=== PATIENT | female | born 1980 | race African-American/Black ===

== ENCOUNTER 2016-09-29 00:50 | Inpatient (IN) ==
[2016-09-29] MEDS ORDERED: HYDROmorphone 2 MG/1 ML VIAL IV STA (01:26)
[2016-09-29] MEDS ORDERED: SODIUM CHLORIDE 0.9% 1,000 ML IV STA (01:26)
[2016-09-29] MEDS ORDERED: ONDANSETRON 4 MG/2 ML VIAL IV STA (01:26)
--- NOTE | 2016-09-29 01:30 | Emergency Department Note ---
Arrival - Arrival ED Nursing Triage Note: Patient states that she thinks that she is having a sickle cell crisis. Reports thtat the back of her head is very painful to the touch and feels numb. Also complains of generalized pain. No other medical history. Mode of Arrival: Ambulatory Limitations: No Limitations Source: Patient - History of Present Illness Onset (ago): hour(s) (Patient presents 4-5 hours post onset of symptoms) Date of Last Menstrual Period: 09/29/2016 <Pavel Rubio - Last Filed: 09/29/16 01:28> <Fernando Dorsey - Last Filed: 09/29/16 05:02> - Arrival Chief Complaint: Sickle Cell Time Seen by Provider: 09/29/16 01:26 - History of Present Illness HPI Narrative: This 36-year-old black female with sickle cell disease followed in the [place] [facility] presents with complaints of onset of pain in typical distribution approximately 4-5 hours ago. The patient has tried to control the discomfort but has not been able do so and now presents for further evaluation and treatment. She denies chills, fever, cough, shortness of breath, dysuria, urgency, nausea, or vomiting. Other than the pain, currently she is medically stable. (Pavel uRbio) Allergies/Adverse Reactions: Allergies Allergy/AdvReac Type Severity Reaction Status Date / Time No Known Allergies Allergy Verified 01/23/15 18:20 Home Medications: Home Medications Medication Instructions Recorded Confirmed Type Ferrous Sulfate [Iron] 325 mg PO DAILY 09/29/16 09/29/16 History Review of System - Review of System 12 point system: reviewed and no additional remarkable complaints except as stated - Review of System Constitutional: Present: as per HPI Musculoskeletal: Present: as per HPI Hematological/Lymphatic: Present: as per HPI <Pavel Rubio - Last Filed: 09/29/16 01:28> Medical,Surgical,& Family Hx - Medical History Cardio: History of: Cardiovascular Problems Hematology: History of: Anemia, Sickle Cell Disease - Social History Smoking Status: Never smoker Frequency of Alcohol Use: None Type of Drug Use: None <Pavel Rubio - Last Filed: 09/29/16 01:28> Exam <Pavel Rubio - Last Filed: 09/29/16 01:28> <Fernando Dorsey - Last Filed: 09/29/16 05:02> Physical Examination: GENERAL: Well developed, well nourished black in no acute distress. HEENT: Normocephalic. No trauma. Moist mucous membranes. EOMI. PERRLA. ENT NML NECK: Supple. No adenopathy. CARDIAC: Regular. No murmurs. Heart rate 73 CHEST: Clear to auscultation. No respiratory distress. O2 sat 100 ABDOMEN: Soft. Nontender. Active bowel sounds. EXTREMITIES: No trauma. Pain on range of motion all large joints. No pedal edema. SKIN: No diaphoresis. No rash. NEURO: Alert. Neuro intact no focal deficits. (Pavel Rubio) Vital Signs: Vital Signs Temperature 98.2 F 09/29/16 00:50 Pulse Rate 77 09/29/16 00:50 Respiratory Rate 20 09/29/16 00:50 Blood Pressure 126/63 09/29/16 00:50 O2 Sat by Pulse Oximetry 100 09/29/16 00:50 Course <Pavel Rubio - Last Filed: 09/29/16 01:28> - Consultations Time: 05:02 <Fernanod Dorsey - Last Filed: 09/29/16 05:02> - Consultations Consultation #1: Hospitalist will admit patient (Fernando Dorsey) Results - Labs CBC & BMP: 09/29/16 02:01 09/29/16 02:01 Lab Results: I have reviewed the patients labs <Fernando Dorsey - Last Filed: 09/29/16 05:02> Disposition <Pavel Rubio - Last Filed: 09/29/16 01:28> Case discussed with: patient Time of Disposition: 05:02 <Fernando Dorsey - Last Filed: 09/29/16 05:02> Clinical Impression: Sickle cell crisis, Anemia of chronic disease Disposition: Still a Patient Condition: Stable
[2016-09-29] MEDS ORDERED: ONDANSETRON 4 MG/2 ML VIAL ONE (01:46)
[2016-09-29] MEDS ORDERED: HYDROmorphone 2 MG/1 ML VIAL ONE (01:47)
[2016-09-29 02:51] LABS: Basophils % 0.2 % (0.0-0.8); Eosinophils # 0.2 10*3/uL (0.0-0.87); Eosinophils % 2.9 % (0.00-10.9); Hematocrit 23.4 VOL% (35.7-47.0); Hemoglobin 7.1 GM/DL (12.0-16.0); Immature Granulocytes % 0.2 %; Immature Granulocytes Absolute 0.01 #; Lymphocytes # 2.1 10*3/uL (1.4-4.0); Lymphocytes % 33.8 % (21.3-54.2); Mean Corpuscular HGB Conc 30.3 GM/DL (32-36); Mean Corpuscular Hemoglobin 21 PG (27-34); Mean Corpuscular Volume 68.2 FL (87-102); Mean Platelet Volume 12.7 FL (9.6-12.0); Monocytes # 0.6 10*3/uL (0.11-0.8); Monocytes % 10.2 % (1.7-12.7); Neutrophils # 3.3 10*3/uL (1.4-7.4); Neutrophils % 52.7 % (38.7-73.9); Platelet Count 278 T/CUMM (130-400); Red Blood Count 3.43 MC/CUMM (3.8-5.5); Red Cell Distribution Width 17.8 % (9.3-17.3); White Blood Count 6.3 T/CUMM (4-12)
[2016-09-29 03:04] LABS: Alanine Aminotransferase 12 U/L (13-56); Albumin 3.6 G/DL (3.4-5.0); Alkaline Phosphatase 45 U/L (45-117); Aspartate Amino Transferase 11 U/L (0-37); Bilirubin,Total < 0.39 MG/DL (0.2-1.0); Blood Urea Nitrogen 4 MG/DL (7-18); Calcium 8.4 MG/DL (8.5-10.1); Glucose 101 MG/DL (74-106); Osmolality,Calculated 277.3 MOS/KG (273-304); Potassium 3.2 MMOL/L (3.5-5.1); Sodium 141 MMOL/L (136-145); Total Protein 7.9 G/DL (6.4-8.3)
[2016-09-29] MEDS ORDERED: PROMETHAZINE 25 MG/1 ML VIAL IM STA (03:10)
[2016-09-29] MEDS ORDERED: PROMETHAZINE 25 MG/1 ML VIAL ONE (03:11)
[2016-09-29 03:17] LABS: PT Patient Result 10.9 SECS
[2016-09-29 04:51] LABS: Anisocytosis 1+; Hypochromasia 1+; Platelet Estimate Normal; Polychromasia Slight
[2016-09-29] MEDS ORDERED: ONDANSETRON 4 MG/2 ML VIAL IV PRN (06:15)
[2016-09-29] MEDS ORDERED: ZALEPLON 5 MG CAPSULE PO PRN (06:15)
[2016-09-29] MEDS ORDERED: ACETAMINOPHEN 325 MG TABLET PO PRN (06:15)
[2016-09-29] MEDS ORDERED: POTASSIUM CHLORIDE 20 MEQ TABLET PO ONE ×2 (06:18→07:03)
--- NOTE | 2016-09-29 06:21 | Hospitalist History & Physical ---
Assessment and Plan (1) Sickle cell crisis Status: Acute Assessment and plan: Admit to medical surgical floor. Hydrate with lactated Ringer's Morphine for pain Repeat LDH and reticulocyte count tomorrow Transfuse as needed Current Visit: Yes (2) Anemia of chronic disease Status: Chronic Current Visit: Yes History of Present Illness History of present illness: Ms. Rees is a 36 year old female with sickle cell disease followed in the [place] [facility] presents with complaints of onset of pain in typical distribution approximately 4-5 hours ago. The patient has tried to control the discomfort but has not been able do so and now presents for further evaluation and treatment. She denies chills, fever, cough, shortness of breath, dysuria, urgency, nausea, or vomiting. Other than the pain, currently she is medically stable. She reports only taking ferrous sulfate daily. She has not been on hydroxyurea in the past. She does not take folic acid. She reports the pain began in her ankles and has worked its way up her legs. It is now generalized in all extremities. She reports the pain is severe and rates it at an 8 out of 10. It is worsened with touch. Home Medications Medication Instructions Recorded Confirmed Type Ferrous Sulfate [Iron] 325 mg PO DAILY 09/29/16 09/29/16 History Allergies Allergy/AdvReac Type Severity Reaction Status Date / Time No Known Allergies Allergy Verified 01/23/15 18:20 Medical,Surgical,& Family Hx - Medical History Cardio: History of: Cardiovascular Problems Hematology: History of: Anemia, Sickle Cell Disease - Family History Family History: Reports;: Family Hematology, Family Hypertension - Social History Smoking Status: Never smoker Frequency of Alcohol Use: None Type of Drug Use: None Marital Status: Single Lives With:: Alone Functional capacity: independent ambulation 12 point system: reviewed and no additional remarkable complaints except as stated Exam - Constitutional Vitals: Period Temp Pulse Resp BP Sys/Hubbard Pulse Ox Last 24 Hr 98.2 F-98.2 F 73-77 20-23 126-126/63-63 100-100 Exam: Constitutional System: No distress. No tremulousness. Head: Normocephalic, atraumatic. Ears, Nose and Throat System: No pain or tenderness. No epistaxis or discharge Eyes System: Pupils equal, round, and reactive. Extraocular muscles intact. Neck: Supple, without adenopathy, No jugular venous distention. No thyromegaly, neck mass, or prior surgery apparent. Respiratory System: Chest clear to auscultation. Cardiovascular System: Heart with regular rate and rhythm. No murmur. GI System: Abdomen soft, nontender. Normo active bowel sounds present. Musculoskeletal System: limbs with no pedal edema. Full distal pulses. Neurological System: No discernable sensory deficit. No aphasia Psychiatric System: Conversation is rational Results - Labs CBC & BMP: 09/29/16 02:01 09/29/16 02:01 Lab Results: I have reviewed the past 24 hour labs - Diagnostic Findings Procedure: Chest x-ray: image reviewed by me
[2016-09-29] MEDS ORDERED: ENOXAPARIN 40 MG/0.4 ML SYRINGE ONE (07:04)
[2016-09-29] MEDS: ENOXAPARIN 40 MG/0.4 ML SYRINGE SUBCUT SCH (07:11)
--- NOTE | 2016-09-29 07:42 | XRay Report ---
XR chest 2V Indication: Shortness of breath Comparison: 23 January 2015 Findings: The heart and mediastinum are normal in size and configuration. The pulmonary vascularity is normal in caliber. No lung infiltrates, effusions, pneumothorax or other abnormality is demonstrated. Impression: Normal chest x-ray PROCEDURE INTERPRETED AT [facility] DEPARTMENT OF RADIOLOGY Final Report Signed by: Dr. Ken Koch
[2016-09-29] MEDS: LACTATED RINGERS 1,000 ML IV SCH ×2 (08:11→16:52)
[2016-09-29] MEDS: PANTOPRAZOLE 40 MG TABLET PO SCH (08:56)
[2016-09-29] MEDS: FERROUS SULFATE 325 MG TABLET PO SCH (08:56)
[2016-09-29] MEDS: MORPHINE 2 MG/1 ML SYRINGE IV PRN ×3 (11:03→22:28)
[2016-09-30] MEDS: LACTATED RINGERS 1,000 ML IV SCH ×3 (00:43→19:55)
[2016-09-30] MEDS: MORPHINE 2 MG/1 ML SYRINGE IV PRN ×3 (04:28→20:37)
[2016-09-30 05:25] LABS: Eosinophils # 0.2 10*3/uL (0.0-0.87); Eosinophils % 3.6 % (0.00-10.9); Hematocrit 21.4 VOL% (35.7-47.0); Immature Granulocytes % 0.2 %; Immature Granulocytes Absolute 0.01 #; Lymphocytes % 43.2 % (21.3-54.2); Mean Corpuscular HGB Conc 29.4 GM/DL (32-36); Mean Corpuscular Hemoglobin 21 PG (27-34); Mean Corpuscular Volume 70.2 FL (87-102); Mean Platelet Volume 12.9 FL (9.6-12.0); Monocytes # 0.5 10*3/uL (0.11-0.8); Monocytes % 10.2 % (1.7-12.7); Neutrophils % 42.8 % (38.7-73.9); Platelet Count 257 T/CUMM (130-400); Red Blood Count 3.05 MC/CUMM (3.8-5.5); Red Cell Distribution Width 17.8 % (9.3-17.3); White Blood Count 4.7 T/CUMM (4-12)
[2016-09-30 05:47] LABS: Hemoglobin 6.3 GM/DL (12.0-16.0)
[2016-09-30 05:53] LABS: Calcium 8.6 MG/DL (8.5-10.1)
[2016-09-30 05:54] LABS: Magnesium 2.2 MG/DL (1.8-2.4); Osmolality,Calculated 278.3 MOS/KG (273-304)
[2016-09-30 06:26] LABS: Eosinophils 2 % (0-10); Lymphocytes 37 % (20-55); Metamyelocytes 3 %; Segmented Neutrophils 54 % (50-85)
[2016-09-30 06:30] LABS: Anisocytosis 2+; Hypochromasia 2+; Microcytosis 2+; Platelet Estimate Normal
[2016-09-30 06:32] LABS: Total Cells Counted 100
[2016-09-30] MEDS: FERROUS SULFATE 325 MG TABLET PO SCH (08:47)
[2016-09-30] MEDS: ENOXAPARIN 40 MG/0.4 ML SYRINGE SUBCUT SCH (08:47)
[2016-09-30] MEDS: PANTOPRAZOLE 40 MG TABLET PO SCH (08:47)
[2016-09-30] MEDS ORDERED: SODIUM CHLORIDE 0.9% 250 ML IV PRN (09:46)
--- NOTE | 2016-09-30 10:27 | Hospitalist Progress Note ---
Assessment and Plan - Time spent with patient Time spent with patient: Greater than 30 minutes (pt is new to me. Chart reviewed by me today.) (1) Sickle cell crisis Status: Acute Assessment and plan: Pain management. Continue IVF. Current Visit: Yes (2) Anemia of chronic disease Status: Chronic Assessment and plan: Transfuse 2u PRBC today. CBC in am. Current Visit: Yes Hospitalist: Subjective Interval history: Pain better. Hb 6.3 this am. Can eat. Deny fever, SOB, chest pain, cough, or wheezing. Deny nausea, vomiting or diarrhea. in the room. Exam - Constitutional Vitals: Period Temp Pulse Resp BP Sys/Hubbard Pulse Ox Last 24 Hr 96.9 F-97.8 F 69-81 18-20 101-112/54-78 97-100 Exam: General: Lying in bed supine. AAOx3 HEENT: NC AT EOMI PERRLA Normal lips and gum Lungs: B/L CTA Heart: RRR, no murmur Abd: +BS ND. Neuro: AAOx3 Results - Labs CBC & BMP: 09/30/16 04:45 09/30/16 04:45
[2016-09-30] MEDS ORDERED: diphenhydrAMINE 50 MG/1 ML VIAL IV ONE (16:43)
[2016-09-30] MEDS ORDERED: KETOROLAC 15 MG/1 ML VIAL IV ONE (16:43)
[2016-10-01] MEDS: LACTATED RINGERS 1,000 ML IV SCH ×3 (03:30→17:28)
[2016-10-01 03:31] LABS: Basophils % 0.1 % (0.0-0.8); Eosinophils # 0.3 10*3/uL (0.0-0.87); Eosinophils % 3.7 % (0.00-10.9); Hematocrit 24.6 VOL% (35.7-47.0); Immature Granulocytes % 0.3 %; Immature Granulocytes Absolute 0.02 #; Lymphocytes # 2.1 10*3/uL (1.4-4.0); Lymphocytes % 27.6 % (21.3-54.2); Mean Corpuscular HGB Conc 31.3 GM/DL (32-36); Mean Corpuscular Hemoglobin 23 PG (27-34); Mean Corpuscular Volume 73.4 FL (87-102); Mean Platelet Volume 12.1 FL (9.6-12.0); Monocytes # 0.7 10*3/uL (0.11-0.8); NRBC # 0.02 10*3/uL; Neutrophils # 4.6 10*3/uL (1.4-7.4); Neutrophils % 59.3 % (38.7-73.9); Platelet Count 242 T/CUMM (130-400); Red Blood Count 3.35 MC/CUMM (3.8-5.5); Red Cell Distribution Width 19.4 % (9.3-17.3); White Blood Count 7.8 T/CUMM (4-12)
[2016-10-01 03:35] LABS: Hemoglobin 7.7 GM/DL (12.0-16.0)
[2016-10-01] MEDS: MORPHINE 2 MG/1 ML SYRINGE IV PRN ×3 (03:37→17:15)
[2016-10-01] MEDS: ENOXAPARIN 40 MG/0.4 ML SYRINGE SUBCUT SCH (09:18)
[2016-10-01] MEDS: FERROUS SULFATE 325 MG TABLET PO SCH (09:18)
[2016-10-01] MEDS: PANTOPRAZOLE 40 MG TABLET PO SCH (09:18)
--- NOTE | 2016-10-01 12:17 | Discharge Summary ---
<Nuria Pappasda - Last Filed: 10/01/16 12:13> Hospital Course - Hospital Course Hospital Course: This is a chronically ill 36-year-old female that presented to the ED on the morning of September 29, 2016 at [facility] for the evaluation of sickle cell pain crisis. The patient has a medical history significant for sickle cell anemia and chronic anemia. The patient reported the onset of symptoms 4-5 hours prior to presentation. She attempted to control her pain with her usual pain regimen however she has been unable to contain it. She reports that she is normally followed in the outpatient setting at the sickle cell clinic in [facility]. She reports that the pain initially started in her lower extremities gradually extending upward ultimately affecting her bilateral lower extremities. After the pain became unbearable, the patient decided to present to the ED for further evaluation.The patient was seen and assessed at the time of ED presentation. Labs were obtained which were significant for hemoglobin of 7.1, hematocrit 23.4, potassium 3.2, and BUN at 4. Chest x-ray was essentially unremarkable. The patient was subsequently admitted to the hospitalist service for continuation of care. Aggressive rehydration, oxygen supplementation, and pain management was initiated. The patient was transfused 2 units of packed red blood cells in response to the anemia noted at the time of admission. The patient's condition gradually improved. The patient's condition is stable. She has not experienced any significant overnight events. Today, we feel that she is indeed appropriate for discharge to follow-up with her primary care physician as indicated. Discharge Plan - Discharge Data Disposition: Disch To Home/Self Care - Discharge Medications Continue Ferrous Sulfate [Iron] 325 mg PO DAILY - Follow Up or Referral - Forms/Instructions Exam - Constitutional Vitals: Period Temp Pulse Resp BP Sys/Hubbard Pulse Ox Last 24 Hr 97.2 F-100.6 F 73-99 16-22 99-136/49-82 93-100 Discharge Results Procedures and tests throughout hospitalization: Pending Orders 09/29/16 02:01 Blood Culture Stat Labs on day of discharge: Labs from last 24 hours 10/01/16 09/30/16 02:15 04:45 WBC 7.8 D RBC 3.35 L Hgb 7.7 L D Hct 24.6 L MCV 73.4 L MCH 23 L MCHC 31.3 L RDW 19.4 H Plt Count 242 MPV 12.1 H Neut % (Auto) 59.3 Lymph % (Auto) 27.6 [place] % (Auto) 9.0 Eos % (Auto) 3.7 Baso % (Auto) 0.1 Neut # (Auto) 4.6 Lymph # (Auto) 2.1 [place] # (Auto) 0.7 Eos # (Auto) 0.3 Baso # (Auto) 0.0 Immature Gran % 0.3 Nucleated RBC % 0.3 Immature Gran # 0.02 Nucleated RBCs # 0.02 Immature Plt Fraction 0.0 Blood Type O POSITIVE Antibody Screen Negative Crossmatch See Detail Preliminary micro results at discharge 09/29/16 02:01 Blood Culture - Preliminary Blood No growth at 1 day 09/29/16 02:01 Blood Culture - Preliminary Blood No growth at 1 day DS: Provider Date of admission: 09/29/16 06:16 Primary care physician: . No PCP Attending physician on admission: Hiwot Zimmerman MD Discharging clinician: Rama Pappas CNP <Florin Jones - Last Filed: 10/01/16 13:25> Discharge Plan - Discharge Data Condition at Discharge: Stable Discharge Diet: advance to your usual diet Activity: resume usual activities as tolerated Hygiene: no restrictions Weight Bearing at Discharge: full weight bearing Contact your physician if you experience:: fever over 101, Nausea/Vomiting, Shortness of breath, pain uncontrolled by pain medications Exam - Constitutional General appearance: over weight - Head Head exam: Present: normocephalic, atraumatic - Eye Eye exam: Present: EOMI, other (Anicteric sclera) Pupils: Present: JERRY - ENT ENT exam: Present: normal exam - Neck Neck exam: Present: normal inspection - Respiratory Respiratory exam: Present: clear to auscultation bilaterally - Cardiovascular Cardiovascular exam: Present: regular rate and rhythm - GI/Abdominal GI/Abdominal exam: Present: normal bowel sounds, soft - Extremities Exam Extremities exam: Present: full ROM - Neurological Exam Neurological exam: Present: alert, oriented X3, CN II-XII intact - Psychiatric Psychiatric exam: Present: normal affect, normal mood, depressed - Skin Skin exam: Present: normal color, warm, dry
[2016-10-01 16:47] VITALS: BP 112/56
== END 2016-10-01 17:50 | disposition home or self-care (01) | DRG 812 ==
LOC: N.ED 00:50 → N.EDINP 06:15 → SUATTDRO 06:15 → N.2E 07:45
PROVIDERS: ADMIT Family Medicine; ATTEND Internal Medicine Infectious Disease

== ENCOUNTER 2016-12-01 00:20 | Inpatient (IN) ==
[2016-12-01] MEDS ORDERED: SODIUM CHLORIDE 0.9% 1,000 ML IV STA (00:33)
[2016-12-01] MEDS ORDERED: ONDANSETRON 4 MG/2 ML VIAL IV STA (00:33)
[2016-12-01] MEDS ORDERED: HYDROmorphone 2 MG/1 ML VIAL IV STA ×3 (00:33→05:46)
[2016-12-01] MEDS ORDERED: HYDROmorphone 2 MG/1 ML VIAL ONE ×3 (00:54→06:35)
[2016-12-01] MEDS ORDERED: ONDANSETRON 4 MG/2 ML VIAL ONE (00:54)
[2016-12-01 01:03] LABS: Basophils % 0.1 % (0.0-0.8); Eosinophils # 0.1 10*3/uL (0.0-0.87); Eosinophils % 1.8 % (0.00-10.9); Hematocrit 22.4 VOL% (35.7-47.0); Immature Granulocytes % 0.4 %; Immature Granulocytes Absolute 0.03 #; Lymphocytes # 1.9 10*3/uL (1.4-4.0); Lymphocytes % 23.8 % (21.3-54.2); Mean Corpuscular HGB Conc 31.3 GM/DL (32-36); Mean Corpuscular Hemoglobin 22 PG (27-34); Mean Corpuscular Volume 71.8 FL (87-102); Mean Platelet Volume 11.4 FL (9.6-12.0); Monocytes # 0.6 10*3/uL (0.11-0.8); Neutrophils # 5.3 10*3/uL (1.4-7.4); Neutrophils % 65.9 % (38.7-73.9); Platelet Count 294 T/CUMM (130-400); Red Blood Count 3.12 MC/CUMM (3.8-5.5); Red Cell Distribution Width 19.1 % (9.3-17.3)
[2016-12-01 01:24] LABS: Albumin 3.5 G/DL (3.4-5.0); Bilirubin,Total 0.6 MG/DL (0.2-1.0); Calcium 8.6 MG/DL (8.5-10.1); Osmolality,Calculated 275.4 MOS/KG (273-304); Potassium 3.8 MMOL/L (3.5-5.1); Total Protein 7.2 G/DL (6.4-8.3)
--- NOTE | 2016-12-01 01:32 | Emergency Department Note ---
Arrival - Arrival Chief Complaint: Sickle Cell Stated Complaint: sickle cell ED Nursing Triage Note: C/C pain all over, SIN, shakes started 2-3 hours ago. Pain has been out of pain meds for several days. Has sickle cell trait. Mode of Arrival: Stretcher Time Seen by Provider: 12/01/16 00:32 - History of Present Illness HPI Narrative: This is a 36-year-old female of descent with a history of sickle cell disease who presents with sickle cell crisis for which she called an ambulance complaining of chest pain headache and bilateral leg pain. She denies any shortness of breath wheezing. Allergies/Adverse Reactions: Allergies Allergy/AdvReac Type Severity Reaction Status Date / Time No Known Allergies Allergy Verified 12/01/16 00:32 Home Medications: Home Medications Medication Instructions Recorded Confirmed Type Ferrous Sulfate [Iron] 325 mg PO DAILY 09/29/16 10/18/16 History oxyCODONE/ACETAMINOPHEN 5-325 1 tablet PO Q6H #10 tablet 10/20/16 Rx [Percocet 5-325] Review of System - Review of System Constitutional: Absent: fever, night sweats Eyes: Absent: redness, vision change Head/Ears/Nose/Throat: Absent: epistaxis, nasal drainage Respiratory: Absent: respiratory distress, wheezing Cardiovascular: Present: chest pain. Absent: edema Gastrointestinal: Absent: nausea, diarrhea, constipation Genitourinary female: Absent: dysuria, frequency Musculoskeletal: Absent: arm pain, leg pain Skin: Absent: change in color, change in hair/nails Neurological: Absent: numbness, paresthesias Psychiatric: Absent: anxiety, depression Endocrine: Absent: polydipsia, polyuria Hematological/Lymphatic: Absent: easy bruising, lymphadenopathy Allergic/Immunologic: Absent: urticaria, itchy eyes Medical,Surgical,& Family Hx - Medical History Cardio: History of: Cardiovascular Problems Hematology: History of: Anemia, Sickle Cell Disease (TRAIT) - Surgical History Reproductive Surgeries: Surgical HX of;: Dilation and Curettage, Tubal Ligation - Family History Family History: Reports;: Family Hypertension - Social History Smoking Status: Never smoker Exam Vital Signs: Vital Signs Temperature 98.4 F 12/01/16 00:26 Pulse Rate 85 12/01/16 00:26 Respiratory Rate 16 12/01/16 00:26 Blood Pressure 122/81 12/01/16 00:26 O2 Sat by Pulse Oximetry 100 12/01/16 00:40 - Head Head exam: Present: atraumatic - Eye Eye exam: Present: PERRL, EOMI - ENT ENT exam: Present: normal exam, normal oropharynx - Neck Neck exam: Present: normal inspection, full ROM - Chest Chest inspection: Present: normal inspection, symmetric chest wall rise - Respiratory Respiratory exam: Present: normal lung sounds bilaterally - Cardiovascular Cardiovascular exam: Present: regular rate, normal rhythm - Abdominal Exam Abdominal exam: Present: soft, normal bowel sounds - Extremities Exam Extremities exam: Present: normal inspection, full ROM - Back Exam Back exam: Present: normal inspection, full ROM - Neurological Exam Neurological exam: Present: alert, oriented X3, CN II-XII intact - Psychiatric Psychiatric exam: Present: normal affect, normal mood - Skin Skin exam: Present: warm, dry Course Course Narrative: The patient's laboratories are normal or at their baseline. There is no fever. Chest x-ray is normal. The patient's pain is not controlled with Dilaudid. The patient is unwilling to go home because of her pain. Therefore seems reasonable with the patient to be in mid to the hospital for pain management. Case was discussed with the hospitalist who agreed to admit the patient. Results - Labs CBC & BMP: 12/01/16 00:50 12/01/16 00:50 Disposition Clinical Impression: Sickle cell crisis Disposition: Still a Patient Additional Instructions: The patient's pain has not been controlled with 2 mg of Dilaudid. Therefore it seems reasonable patient be admitted for pain management. The case was discussed with the hospitalist who agreed to admit the patient.
[2016-12-01] MEDS ORDERED: HYDROmorphone 2 MG/1 ML VIAL IV PRN (06:15)
--- NOTE | 2016-12-01 06:19 | Hospitalist History & Physical ---
Assessment and Plan (1) Sickle cell crisis Status: Acute Current Visit: No (2) Anemia of chronic disease Status: Chronic Assessment and plan: Our plan for this patient will be admitting her to a [facility] floor. We will provide hydration to her and IV narcotic pain relief. Hopefully her symptoms will improve in the next day or so. Recheck her CBC in the morning. Would like not to transfuse if possible. Current Visit: No History of Present Illness Chief complaint: Sickle cell pain History of present illness: Ms. Rees is a 36 year old female with past medical history of sickle cell disease who was in her normal state of health until couple days ago. Patient reported that she started noticing ankle pain. It radiated up to her knee. She said the pain progressively got worse she did not have any narcotic pain medicines at home came up to our hospital for further evaluation. Patient received approximately 3 mg of IV Dilaudid without any results. I was consulted to admit her. Home Medications Medication Instructions Recorded Confirmed Type Ferrous Sulfate [Iron] 325 mg PO DAILY 09/29/16 10/18/16 History oxyCODONE/ACETAMINOPHEN 5-325 1 tablet PO Q6H #10 tablet 10/20/16 Rx [Percocet 5-325] Allergies Allergy/AdvReac Type Severity Reaction Status Date / Time No Known Allergies Allergy Verified 12/01/16 00:32 Medical,Surgical,& Family Hx - Medical History Cardio: History of: Cardiovascular Problems Hematology: History of: Anemia, Sickle Cell Disease (TRAIT) - Surgical History Reproductive Surgeries: Surgical HX of;: Dilation and Curettage, Tubal Ligation - Family History Family History: Reports;: Family Hypertension - Social History Smoking Status: Never smoker Frequency of Alcohol Use: None Type of Drug Use: None 12 point system: reviewed and no additional remarkable complaints except as stated Exam - Constitutional Vitals: Period Temp Pulse Resp BP Sys/Hubbard Pulse Ox Last 24 Hr 98.4 F 85 16 122/81 100-100 General appearance: normal weight - Head Head exam: Present: normal inspection - Eye Eye exam: Present: EOMI Pupils: Present: JERRY - ENT ENT exam: Present: normal exam - Neck Neck exam: Present: normal inspection - Respiratory Respiratory exam: Present: clear to auscultation bilaterally - Cardiovascular Cardiovascular exam: Present: regular rate and rhythm - GI/Abdominal GI/Abdominal exam: Present: normal bowel sounds - Extremities Exam Extremities exam: Present: normal inspection - Back Exam Back exam: Present: normal inspection - Neurological Exam Neurological exam: Present: alert - Psychiatric Psychiatric exam: Present: normal affect - Skin Skin exam: Present: normal color Results - Labs CBC & BMP: 12/01/16 00:50 12/01/16 00:50
--- NOTE | 2016-12-01 08:22 | XRay Report ---
History is vomiting blood and reflux Mild air scattered throughout the bowel without small bowel dilatation or organomegaly seen Multiple pelvic phleboliths present. Clips present in both adnexa Impression: Nonspecific bowel gas pattern PROCEDURE INTERPRETED AT [facility] DEPARTMENT OF RADIOLOGY Final Report Signed by: Dr. Anamaria Grace
--- NOTE | 2016-12-01 08:22 | XRay Report ---
History is sickle cell chest pain Comparison 10/19/2016 The heart is normal in size. The lungs are clear. Impression: No acute pathology seen. PROCEDURE INTERPRETED AT [facility] DEPARTMENT OF RADIOLOGY Final Report Signed by: Dr. Anamaria Grace
[2016-12-01] MEDS: SODIUM CHLORIDE 0.9% 1,000 ML IV SCH ×3 (08:54→22:24)
[2016-12-01] MEDS: PANTOPRAZOLE 40 MG TABLET PO SCH (08:55)
[2016-12-01] MEDS: ENOXAPARIN 40 MG/0.4 ML SYRINGE SUBCUT SCH (08:56)
--- NOTE | 2016-12-01 13:43 | Hospitalist Progress Note ---
Assessment and Plan (1) Sickle cell crisis Status: Acute Assessment and plan: Hemoglobin electrophoresis ordered. Dilaudid 1 mg IV every 3 hours, percocet prn breakthrough pain. Current Visit: No (2) Anemia of chronic disease Status: Chronic Assessment and plan: hgb 7 stable, no blood transfusion needed right now Current Visit: No Hospitalist: Subjective Interval history: In speaking with the patient it does not sound like her pain is well controlled at home. We will also have our insurance group look at her as she does not have any insurance. She is concerned whether she has sickle cell trait or sickle cell disease and told her I would test her. Patient says she usually goes to [place] but they were on diversion. Exam - Constitutional Vitals: Period Temp Pulse Resp BP Sys/Hubbard Pulse Ox Last 24 Hr 98.2 F-98.4 F 71-85 15-18 98-122/41-81 100-100 Exam: Heart Rate-[RRR] Lungs-[CTAB] GI-[+bs soft, NT] Ext-[no edema] Neuro [Motor 5/5], [alert and oriented times 3] psych [normal mood and affect] General [no acute distress] Results - Labs CBC & BMP: 12/01/16 00:50 12/01/16 00:50 Lab Results: I have reviewed the past 24 hour labs
[2016-12-01] MEDS: HYDROmorphone 2 MG/1 ML VIAL IV PRN ×3 (13:52→22:12)
[2016-12-01] MEDS: ONDANSETRON 4 MG/2 ML VIAL IV PRN (22:50)
[2016-12-02] MEDS: ONDANSETRON 4 MG/2 ML VIAL IV PRN (05:12)
[2016-12-02] MEDS: HYDROmorphone 2 MG/1 ML VIAL IV PRN ×2 (05:12→22:31)
[2016-12-02] MEDS: SODIUM CHLORIDE 0.9% 1,000 ML IV SCH ×3 (06:12→22:32)
[2016-12-02 06:32] LABS: Basophils % 0.2 % (0.0-0.8); Eosinophils # 0.2 10*3/uL (0.0-0.87); Eosinophils % 2.8 % (0.00-10.9); Hematocrit 22.4 VOL% (35.7-47.0); Hemoglobin 6.7 GM/DL (12.0-16.0); Immature Granulocytes % 0.3 %; Immature Granulocytes Absolute 0.02 #; Lymphocytes # 1.9 10*3/uL (1.4-4.0); Lymphocytes % 32.9 % (21.3-54.2); Mean Corpuscular HGB Conc 29.9 GM/DL (32-36); Mean Corpuscular Hemoglobin 22 PG (27-34); Mean Corpuscular Volume 74.2 FL (87-102); Mean Platelet Volume 12.2 FL (9.6-12.0); Monocytes # 0.5 10*3/uL (0.11-0.8); Monocytes % 7.9 % (1.7-12.7); Neutrophils # 3.3 10*3/uL (1.4-7.4); Neutrophils % 55.9 % (38.7-73.9); Platelet Count 265 T/CUMM (130-400); Red Blood Count 3.02 MC/CUMM (3.8-5.5); Red Cell Distribution Width 19.3 % (9.3-17.3); White Blood Count 5.8 T/CUMM (4-12)
[2016-12-02 08:02] LABS: Hemoglobin A1 (Alkaline) 71.7 % (96.5-98.5); Hemoglobin A2 (Alkaline) 2.3 % (1.5-3.5)
[2016-12-02] MEDS: ENOXAPARIN 40 MG/0.4 ML SYRINGE SUBCUT SCH (10:27)
[2016-12-02] MEDS: PANTOPRAZOLE 40 MG TABLET PO SCH (10:28)
[2016-12-02] MEDS: oxyCODONE/ACETAMINOPHEN 5-325 MG TABLET PO PRN ×2 (13:55→19:19)
--- NOTE | 2016-12-02 15:18 | Hospitalist Progress Note ---
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 Dilaudid 1 mg IV every 3 hours, percocet prn breakthrough pain. Current Visit: No (2) Anemia of chronic disease Status: Chronic Assessment and plan: hgb 6.7 stable Current Visit: No Hospitalist: Subjective Interval history: Patient feeling better today. Hemoglobin is down to 6.7. Exam - Constitutional Vitals: Period Temp Pulse Resp BP Sys/Hubbard Pulse Ox Last 24 Hr 97.3 F-98.4 F 72-80 18-20 102-122/52-73 98-100 Exam: Heart Rate-[RRR] Lungs-[CTAB] GI-[+bs soft, NT] Ext-[no edema] Neuro [Motor 5/5], [alert and oriented times 3] psych [normal mood and affect] General [no acute distress] Results - Labs CBC & BMP: 12/02/16 05:38 12/01/16 00:50 Lab Results: I have reviewed the past 24 hour labs
[2016-12-03] MEDS: oxyCODONE/ACETAMINOPHEN 5-325 MG TABLET PO PRN ×2 (01:55→16:46)
[2016-12-03] MEDS: SODIUM CHLORIDE 0.9% 1,000 ML IV SCH ×2 (06:17→16:45)
[2016-12-03] MEDS: HYDROmorphone 2 MG/1 ML VIAL IV PRN (09:28)
[2016-12-03] MEDS: PANTOPRAZOLE 40 MG TABLET PO SCH (09:28)
[2016-12-03] MEDS: ENOXAPARIN 40 MG/0.4 ML SYRINGE SUBCUT SCH (09:28)
--- NOTE | 2016-12-03 09:33 | Discharge Summary ---
Hospital Course - Hospital Course Hospital Course: 36-year-old -[place] female admitted for sickle cell crisis. Patient was noted to be anemic and have presumed crisis. I spoke the patient apparently she was told that she has had sickle cell trait. She usually goes to [facility] and we do not have the records. I ordered a hemoglobin electrophoresis which confirmed that she just had trait. These people do not usually have sickle cell crisis as discussed with Dr. Cole. Patient does have heavy periods and has acute blood loss anemia due to these heavy periods. I will give her 2 units of blood today and check her iron studies. She will be discharged home on iron and encouraged to continue to hydrate well. She is under a lot of stress at home. Her LDH is not elevated at 195, total bili is normal. Her iron levels are 14 with ferritin levels of 2.7 I will give her as needed Percocet for pain. She will be discharged home on iron. She does not have insurance but I will have her follow[facility]up with [facility]. - Time spent with patient Time with patient DS: Less than 30 minutes (25 min) Diagnosis - Discharge Diagnosis (1) Sickle cell crisis Status: Acute (2) Anemia of chronic disease Status: Chronic Specialty Discharge - Follow Up or Referrals Follow up with: [facility] [Provider Group] - 1 Week Jesus Priest MD [Physician] - 2 Weeks Discharge Plan - Discharge Data Disposition: Disch To Home/Self Care Condition at Discharge: Stable Discharge Diet: heart healthy Activity: resume usual activities as tolerated Hygiene: no restrictions Weight Bearing at Discharge: full weight bearing - Discharge Medications New Ferrous Sulfate [Iron] 325 mg PO TID #90 tablet Changed oxyCODONE/ACETAMINOPHEN 5-325 [Percocet 5-325] 10 mg PO Q6H #40 tablet - Follow Up or Referral Follow Up: [facility] [Provider Group] - 1 Week - Forms/Instructions Additional Discharge Instructions: drink plenty of water and dont take percocet and drive. Avoid stress Exam - Constitutional Vitals: Period Temp Pulse Resp BP Sys/Hubbard Pulse Ox Last 24 Hr 97.7 F-98.6 F 72-88 16-19 109-123/48-79 97-100 General appearance: normal weight, no acute distress - Respiratory Respiratory exam: Present: clear to auscultation bilaterally. Absent: rhonchi, wheezes - Cardiovascular Cardiovascular exam: Present: regular rate and rhythm. Absent: systolic murmur - GI/Abdominal GI/Abdominal exam: Present: normal bowel sounds, soft. Absent: tenderness DS: Provider Date of admission: 12/01/16 06:13 Primary care physician: . No PCP Attending physician on admission: Cassandra Lay MD Discharging clinician: Lesli Castano MD
[2016-12-03] MEDS ORDERED: SODIUM CHLORIDE 0.9% 250 ML IV PRN (10:26)
[2016-12-03 10:41] LABS: Eosinophils # 0.2 10*3/uL (0.0-0.87); Eosinophils % 3.4 % (0.00-10.9); Hematocrit 22.5 VOL% (35.7-47.0); Hemoglobin 6.7 GM/DL (12.0-16.0); Immature Granulocytes % 0.2 %; Immature Granulocytes Absolute 0.01 #; Lymphocytes # 1.4 10*3/uL (1.4-4.0); Lymphocytes % 25.5 % (21.3-54.2); Mean Corpuscular HGB Conc 29.8 GM/DL (32-36); Mean Corpuscular Hemoglobin 22 PG (27-34); Mean Corpuscular Volume 74.5 FL (87-102); Mean Platelet Volume 12.9 FL (9.6-12.0); Monocytes # 0.5 10*3/uL (0.11-0.8); Neutrophils # 3.5 10*3/uL (1.4-7.4); Neutrophils % 62.9 % (38.7-73.9); Platelet Count 233 T/CUMM (130-400); Red Blood Count 3.02 MC/CUMM (3.8-5.5); Red Cell Distribution Width 19.3 % (9.3-17.3); White Blood Count 5.6 T/CUMM (4-12)
[2016-12-03] MEDS ORDERED: IRON SUCROSE 300 MG in SODIUM CHLORIDE 0.9% 100 ML IV ONE ×2 (12:15→20:00)
[2016-12-03 20:33] LABS: Hematocrit 28.8 VOL% (35.7-47.0); Hemoglobin 9.1 GM/DL (12.0-16.0)
[2016-12-03 21:01] VITALS: BP 143/55
== END 2016-12-03 21:30 | disposition home or self-care (01) | DRG 812 ==
LOC: EDBD → EDUNIT# → N.ED 00:20 → N.EDINP 06:13 → SUATTDRO 06:13 → N.2E 06:41
PROVIDERS: ADMIT Internal Medicine; ATTEND Internal Medicine

== ENCOUNTER 2017-08-29 11:33 | Inpatient (IN) ==
[2017-08-29 12:21] LABS: Apearance,Urine CLEAR (Clear); Bilirubin,Urine Negative (Negative); Blood, Urine Negative (Negative); Glucose,Urine (UA) Negative (Negative); Ketones,Urine Negative (Negative); Mucus,Urine Occasional /LPF (Occasional); Nitrite,Urine Negative (Negative); Protein,Urine Negative; RBC,Urine <1 /HPF (0-4); Squamous Epithelial Cell,Urine Occasional /HPF (0-10); Urine Color Yellow (Yellow); Urine Specific Gravity 1.015 (1.001-1.035); Urine Urobilinogen < 2.0 EU/DL (0.2-1.0); WBC,Urine <1 /HPF (0-6)
[2017-08-29 12:38] LABS: Basophils % 0.2 % (0.0-0.8); Eosinophils # 0.2 10*3/uL (0.0-0.87); Eosinophils % 2.3 % (0.00-10.9); Hematocrit 23.3 VOL% (35.7-47.0); Hemoglobin 6.8 GM/DL (12.0-16.0); Immature Granulocytes % 0.3 %; Immature Granulocytes Absolute 0.02 #; Lymphocytes # 1.3 10*3/uL (1.4-4.0); Lymphocytes % 20.6 % (21.3-54.2); Mean Corpuscular HGB Conc 29.2 GM/DL (32-36); Mean Corpuscular Hemoglobin 20 PG (27-34); Mean Corpuscular Volume 68.5 FL (87-102); Monocytes # 0.6 10*3/uL (0.11-0.8); Monocytes % 9.1 % (1.7-12.7); Neutrophils # 4.3 10*3/uL (1.4-7.4); Neutrophils % 67.5 % (38.7-73.9); Platelet Count 286 T/CUMM (130-400); Red Cell Distribution Width 17.5 % (9.3-17.3); White Blood Count 6.4 T/CUMM (4-12)
[2017-08-29 13:11] LABS: Beta HCG Titer < 1.0 mIU/ml (1-3); Blood Urea Nitrogen 7 MG/DL (7-18); Calcium 7.9 MG/DL (8.5-10.1); Glucose 88 MG/DL (74-106); Osmolality,Calculated 275.4 MOS/KG (273-304); Potassium 3.6 MMOL/L (3.5-5.1); Sodium 140 MMOL/L (136-145)
[2017-08-30 07:52] LABS: Basophils % 0.1 % (0.0-0.8); Eosinophils # 0.1 10*3/uL (0.0-0.87); Eosinophils % 1.6 % (0.00-10.9); Hemoglobin 9.8 GM/DL (12.0-16.0); Immature Granulocytes % 0.3 %; Immature Granulocytes Absolute 0.03 #; Lymphocytes # 1.5 10*3/uL (1.4-4.0); Lymphocytes % 17.3 % (21.3-54.2); Mean Corpuscular HGB Conc 30.6 GM/DL (32-36); Mean Corpuscular Hemoglobin 23 PG (27-34); Mean Corpuscular Volume 74.6 FL (87-102); Mean Platelet Volume 10.9 FL (9.6-12.0); Monocytes # 0.6 10*3/uL (0.11-0.8); Monocytes % 6.7 % (1.7-12.7); Neutrophils # 6.4 10*3/uL (1.4-7.4); Platelet Count 284 T/CUMM (130-400); Red Blood Count 4.29 MC/CUMM (3.8-5.5); Red Cell Distribution Width 22.9 % (9.3-17.3); White Blood Count 8.6 T/CUMM (4-12)
[2017-08-30 08:11] LABS: Anisocytosis 1+; Platelet Estimate Normal
[2017-08-30 08:18] LABS: Calcium 7.9 MG/DL (8.5-10.1); Osmolality,Calculated 276.4 MOS/KG (273-304); Potassium 3.7 MMOL/L (3.5-5.1)
[2017-08-30 14:40] LABS: Hematocrit 33.5 VOL% (35.7-47.0); Hemoglobin 10.2 GM/DL (12.0-16.0)
[2017-08-31 06:52] LABS: Hematocrit 31.9 VOL% (35.7-47.0)
[2017-08-31 12:54] VITALS: BP 125/64
== END 2017-08-31 13:45 | disposition home or self-care (01) | DRG 760 ==
LOC: EDBD → EDUNIT# → N.ED 11:33 → SUATTDRO 14:52 → N.EDINP 14:52 → N.5E 18:19
PROVIDERS: ADMIT Family Medicine; ATTEND Internal Medicine

== ENCOUNTER 2018-11-25 19:47 | Observation (INO) ==
[2018-11-25] MEDS ORDERED: KETOROLAC 60 MG/2 ML VIAL IM STA (21:55)
[2018-11-25] MEDS ORDERED: DEXAMETHASONE 4 MG/1 ML VIAL IM STA (21:56)
[2018-11-25 22:32] LABS: Apearance,Urine CLEAR (Clear); Bilirubin,Urine Negative (Negative); Blood, Urine Negative (Negative); Glucose,Urine (UA) Negative (Negative); Ketones,Urine Negative (Negative); Mucus,Urine Occasional /LPF (Occasional); Nitrite,Urine Negative (Negative); Protein,Urine Negative; RBC,Urine 1 /HPF (0-4); Squamous Epithelial Cell,Urine Occasional /HPF (0-10); Urine Color Yellow (Yellow); Urine Specific Gravity 1.016 (1.001-1.035); Urine Urobilinogen < 2.0 EU/DL (0.2-1.0); WBC,Urine <1 /HPF (0-6)
[2018-11-25 22:36] LABS: Barbiturates Screen,Urine Negative (Negative); Benzodiazepines Screen,Urine Negative (Negative); Cannabinoid Screen,Urine Negative (Negative); Opiate Screen,Urine Negative (Negative); Phencyclidine Screen,Urine Negative (Negative)
[2018-11-25 23:35] LABS: Basophils % 0.3 % (0.0-0.8); Eosinophils # 0.2 10*3/uL (0.0-0.87); Eosinophils % 2.7 % (0.00-10.9); Hematocrit 23.2 VOL% (35.7-47.0); Hemoglobin 6.7 GM/DL (12.0-16.0); Immature Granulocytes % 0.2 %; Immature Granulocytes Absolute 0.01 #; Lymphocytes # 1.7 10*3/uL (1.4-4.0); Lymphocytes % 28.6 % (21.3-54.2); Mean Corpuscular HGB Conc 28.9 GM/DL (32-36); Mean Corpuscular Volume 67.6 FL (87-102); Mean Platelet Volume 10.2 FL (9.6-12.0); Monocytes % 5.8 % (1.7-12.7); Neutrophils % 62.4 % (38.7-73.9); Platelet Count 267 T/CUMM (130-400); Red Blood Count 3.43 MC/CUMM (3.8-5.5); Red Cell Distribution Width 17.5 % (9.3-17.3); White Blood Count 5.9 T/CUMM (4-12)
[2018-11-26] MEDS ORDERED: ONDANSETRON 4 MG/2 ML VIAL IV PRN (00:21)
[2018-11-26 00:25] LABS: PT Patient Result 11.3 SECS (9.6-12.2)
[2018-11-26 00:36] LABS: Bilirubin,Total 0.4 MG/DL (0.2-1.0); Calcium 9.2 MG/DL (8.5-10.1); Osmolality,Calculated 281.1 MOS/KG (273-304); Total Protein 7.8 G/DL (6.4-8.3)
[2018-11-26] MEDS ORDERED: SODIUM CHLORIDE 0.9% 1,000 ML IV PRN (01:00)
[2018-11-26] MEDS: ACETAMINOPHEN 325 MG TABLET PO PRN ×2 (08:36→21:54)
[2018-11-26] MEDS: FERROUS SULFATE 325 MG TABLET PO SCH (08:39)
[2018-11-26] MEDS: PANTOPRAZOLE 40 MG TABLET PO SCH (08:39)
[2018-11-26 10:27] LABS: Hemoglobin 9.4 GM/DL (12.0-16.0)
[2018-11-26] MEDS ORDERED: PROMETHAZINE INJ 12.5 MG in SODIUM CHLORIDE 0.9% 50 ML IV ONE (10:58)
[2018-11-26] MEDS ORDERED: PROMETHAZINE 25 MG/1 ML VIAL ONE (11:01)
[2018-11-26] MEDS: KETOROLAC 15 MG/1 ML VIAL IM PRN (23:10)
[2018-11-27] MEDS: KETOROLAC 15 MG/1 ML VIAL IM PRN ×2 (05:07→12:06)
[2018-11-27] MEDS: ACETAMINOPHEN 325 MG TABLET PO PRN (06:44)
[2018-11-27] MEDS: PANTOPRAZOLE 40 MG TABLET PO SCH (08:36)
[2018-11-27] MEDS: FERROUS SULFATE 325 MG TABLET PO SCH (08:36)
[2018-11-27 14:00] VITALS: BP 154/69
== END 2018-11-27 14:45 | disposition home or self-care (01) ==
LOC: N.EDINP 19:47 → N.ED 19:47 → N.4E 11-26 00:49
PROVIDERS: ADMIT Internal Medicine; ATTEND Internal Medicine

== ENCOUNTER 2019-08-01 13:51 | Observation (INO) ==
[2019-08-01] MEDS ORDERED: KETOROLAC 30 MG/1 ML VIAL IM STA (15:26)
[2019-08-01 16:40] LABS: Apearance,Urine CLEAR (Clear); Bilirubin,Urine Negative (Negative); Blood, Urine Moderate mg/dL (Negative); Glucose,Urine (UA) Negative (Negative); Ketones,Urine Negative (Negative); Mucus,Urine Occasional /LPF (Occasional); Nitrite,Urine Negative (Negative); Protein,Urine Negative; RBC,Urine 2 /HPF (0-4); Squamous Epithelial Cell,Urine Occasional /HPF (0-10); Urine Color Yellow (Yellow); Urine Specific Gravity 1.014 (1.001-1.035); Urine Urobilinogen < 2.0 EU/DL (0.2-1.0); WBC,Urine 1 /HPF (0-6)
[2019-08-01 17:46] LABS: Albumin 3.9 G/DL (3.4-5.0); Bilirubin,Total 0.4 MG/DL (0.2-1.0); Calcium 8.5 MG/DL (8.5-10.1); Osmolality,Calculated 269.8 MOS/KG (273-304); Total Protein 8.1 G/DL (6.4-8.3)
[2019-08-01 18:09] LABS: Eosinophils # 0.1 10*3/uL (0.0-0.87); Eosinophils % 1.3 % (0.00-10.9); Hematocrit 22.4 VOL% (35.7-47.0); Immature Granulocytes % 0.3 %; Immature Granulocytes Absolute 0.02 #; Lymphocytes # 2.1 10*3/uL (1.4-4.0); Lymphocytes % 28.5 % (21.3-54.2); Mean Corpuscular HGB Conc 26.8 GM/DL (32-36); Mean Corpuscular Volume 64.4 FL (87-102); Mean Platelet Volume 10.7 FL (9.6-12.0); Monocytes % 9.1 % (1.7-12.7); Neutrophils % 60.8 % (38.7-73.9); Platelet Count 348 T/CUMM (130-400); Red Blood Count 3.48 MC/CUMM (3.8-5.5); Red Cell Distribution Width 18.6 % (9.3-17.3); White Blood Count 7.5 T/CUMM (4-12)
[2019-08-01] MEDS ORDERED: DEXTROSE 50% 25 GM/50 ML VIAL IV PRN (19:57)
[2019-08-01] MEDS ORDERED: ACETAMINOPHEN 325 MG TABLET PO PRN (19:57)
[2019-08-01] MEDS ORDERED: GLUCAGON 1 MG VIAL IM PRN (19:57)
[2019-08-01] MEDS ORDERED: DEXTROSE 5% NACL 0.45% 1,000 ML IV SCH (20:00)
[2019-08-01] MEDS ORDERED: SODIUM CHLORIDE 0.9% 1,000 ML IV PRN (20:02)
[2019-08-02] MEDS: DOCUSATE SODIUM 100 MG CAPSULE PO SCH ×2 (00:24→09:13)
[2019-08-02] MEDS: FERROUS SULFATE 325 MG TABLET PO SCH ×2 (00:24→09:13)
[2019-08-02] MEDS ORDERED: ONDANSETRON 4 MG/2 ML VIAL IV PRN (03:09)
[2019-08-02 06:45] LABS: % Iron Saturation 2.4 % (18-50); Ferritin 1.6 ng/ml (8-252)
[2019-08-02 06:50] LABS: Folate 5.8 NG/ML (5.4-24.0); Vitamin B12 272 PG/ML (211-911)
[2019-08-02 08:20] LABS: Basophils % 0.2 % (0.0-0.8); Eosinophils # 0.1 10*3/uL (0.0-0.87); Eosinophils % 1.4 % (0.00-10.9); Hematocrit 27.6 VOL% (35.7-47.0); Immature Granulocytes % 0.3 %; Immature Granulocytes Absolute 0.02 #; Lymphocytes # 1.6 10*3/uL (1.4-4.0); Lymphocytes % 23.8 % (21.3-54.2); Mean Corpuscular Volume 71.7 FL (87-102); Mean Platelet Volume 10.3 FL (9.6-12.0); Monocytes % 8.9 % (1.7-12.7); Neutrophils % 65.4 % (38.7-73.9); Platelet Count 286 T/CUMM (130-400); Red Blood Count 3.85 MC/CUMM (3.8-5.5); Red Cell Distribution Width 24.5 % (9.3-17.3); White Blood Count 6.6 T/CUMM (4-12)
[2019-08-02 08:30] LABS: Hemoglobin A1 (Alkaline) 65.2 % (96.5-98.5); Hemoglobin A2 (Alkaline) 2.7 % (1.5-3.5)
[2019-08-02 08:31] LABS: Hemoglobin S (Alkaline) 32.1 %
[2019-08-02 08:44] LABS: Hypochromasia 2+; Microcytosis 1+
[2019-08-02 08:45] LABS: Ovalocytes Slight; Platelet Estimate Adequate
[2019-08-02 08:48] LABS: Calcium 8.2 MG/DL (8.5-10.1)
[2019-08-02] MEDS ORDERED: ENOXAPARIN 40 MG/0.4 ML SYRINGE SUBCUT SCH (09:00)
[2019-08-02] MEDS ORDERED: FOLIC ACID 1 MG TABLET PO SCH (09:00)
[2019-08-02] MEDS ORDERED: POTASSIUM CHLORIDE 20 MEQ TABLET PO PRN (09:23)
[2019-08-02 09:27] LABS: Sedimentation Rate-Westergren 20 MM/HR (0-20)
[2019-08-02] MEDS ORDERED: POTASSIUM CHLORIDE 20 MEQ TABLET PO ONE (09:28)
[2019-08-02] MEDS ORDERED: IRON SUCROSE 300 MG in SODIUM CHLORIDE 0.9% 100 ML IV ONE (09:28)
[2019-08-02] MEDS ORDERED: CYANOCOBALAMIN 1000 MCG/1 ML VIAL SUBCUT ONE (09:29)
[2019-08-02 13:34] VITALS: BP 122/64
[2019-08-03] MEDS ORDERED: CYANOCOBALAMIN 500 MCG TABLET PO SCH (09:00)
== END 2019-08-02 15:10 | disposition home or self-care (01) ==
LOC: N.EDINP 13:51 → N.ED 13:51 → N.EDINP 21:28 → N.3E 21:31
PROVIDERS: ADMIT Hospitalist; ATTEND Hospitalist